=== PATIENT | male | born 1960 | race Caucasian/White ===

== ENCOUNTER 2022-12-18 09:11 | Day surgery (SDC) | payer OTHER ==
[~2022-12-18 09:11] MED LIST: Bupivacaine 0.5%/EPINEPHrine 1:200,000 50 ML MDV ONE; Lidocaine 1% 50 ML MDV ONE
[2022-12-18] MEDS ORDERED: Sodium Chloride 0.9% 1,000 ML IV SCH (10:00)
[2022-12-18] MEDS ORDERED: ceFAZolin 2 GM in Premix Bag 1 BAG IV ONE (10:45)
[2022-12-18] MEDS ORDERED: Propofol 200 MG/20 ML SDV ONE ×3 (11:04→11:55)
[2022-12-18] MEDS ORDERED: fentaNYL 100 MCG/2 ML SDV ONE ×2 (11:04→11:26)
[2022-12-18] MEDS ORDERED: Midazolam 1 MG/ML 2 ML SDV ONE (11:04)
== END 2022-12-18 13:25 | disposition home or self-care (01) ==
LOC: JP.SDS 09:11
PROVIDERS: ATTEND Surgery
DX: C83.35 Diffuse large B-cell lymphoma, lymph nodes of inguinal region and lower limb (principal); I10 Essential (primary) hypertension; E11.9 Type 2 diabetes mellitus without complications; E78.00 Pure hypercholesterolemia, unspecified; F17.200 Nicotine dependence, unspecified, uncomplicated
CPT/HCPCS: 38500; 88307; 88341; 88342; 88365; J0690; J2001; J2250; J2704; J3010; J3490; J7030

== ENCOUNTER 2023-01-09 09:25 | Emergency (ER) | payer OTHER ==
[2023-01-09 06:38] LABS: HEMATOCRIT 43.8 % (38.4-49.7); HEMOGLOBIN 15.4 g/dL (12.9-16.9); MEAN CORPUSCULAR HEMOGLOBIN 31.1 pg (31.6-35.5); MEAN CORPUSCULAR HGB CONC 35.2 g/dL (31.6-35.5); MEAN CORPUSCULAR VOLUME 88.5 fL (81.4-99.0); PLATELET COUNT,PLT 96 K/uL (130-375); RED BLOOD CELL COUNT 4.95 M/uL (4.14-5.76)
[2023-01-09 06:40] LABS: WHITE BLOOD CELL COUNT,WBC 80.3 K/uL (3.2-11.0)
[2023-01-09 06:51] LABS: ATYPICAL LYMPHOCYTES MODERATE; BAND PERCENT MAN 1 % (5-11); EOSINOPHILS ABSOLUTE MAN 2.41 K/uL (0.00-0.40); EOSINOPHILS PERCENT MAN 3 % (2-4); LYMPHOCYTES PERCENT MAN 67 % (24-44); METAMYELOCYTE ABSOLUTE MAN 4.82 K/uL; METAMYELOCYTE PERCENT MAN 6 %; MONOCYTES ABSOLUTE MAN 6.42 K/uL (0.20-0.90); MONOCYTES PERCENT MAN 8 % (2-6); NEUTROPHILS ABSOLUTE MAN 12.05 K/uL (1.0-7.6); SEG NEUTROPHILS PERCENT MAN 15 % (36-66)
[2023-01-09 06:56] LABS: A/G RATIO 0.7 (1.2-2.2); ALANINE AMINOTRANSFERASE,ALT 30 U/L (12-78); ALBUMIN 2.9 g/dL (3.4-5.0); ALKALINE PHOSPHATASE 204 U/L (46-116); ANION GAP 20.2 mmol/L (5.0-14.0); ASPARTATE AMNIOTRANSFERASE,AST 383 U/L (15-37); BILIRUBIN TOTAL 0.5 mg/dL (0.2-1.0); BLOOD UREA NITROGEN,BUN 43 mg/dL (7-18); CALCIUM 9.9 mg/dL (8.5-10.1); CARBON DIOXIDE,CO2 21 mmol/L (21-32); CHLORIDE,CL 86 mmol/L (100-108); CREATININE 3.3 mg/dL (0.8-1.3); EST CRCL DRUG DOSING (CG) 22.45 mL/min; ESTIMATED GFR 20 mL/min (>60); GLUCOSE RANDOM 77 mg/dL (74-106); SODIUM,NA 122 mmol/L (140-148)
[2023-01-09 06:57] LABS: POTASSIUM,K 5.2 mmol/L (3.6-5.2)
[2023-01-09 06:58] LABS: INR 1.3; PROTHROMBIN TIME 12.6 sec (9.2-10.6); PTT,PARTIAL THROMBOPLSTIN TIME 28.4 sec (21.8-27.3)
[~2023-01-09 09:25] MED LIST changes: +Acetaminophen 500 MG Tab PO ONE; +Bupivacaine 0.5% 50 ML MDV ONE; -Bupivacaine 0.5%/EPINEPHrine 1:200,000 50 ML MDV ONE; +Lactated Ringers 1,000 ML IV SCH; -Lidocaine 1% 50 ML MDV ONE; +Lidocaine 1% with EPINEPHrine 1:100,000 50 ML MDV ONE; +Midazolam 1 MG/ML 2 ML SDV ONE; +Propofol 200 MG/20 ML SDV ONE; +ceFAZolin 2 GM in Premix Bag 1 BAG IV ONE; +fentaNYL 100 MCG/2 ML SDV ONE
== END 2023-01-09 10:50 ==
LOC: JP.ED 09:25 → EDSTATUS 09:30 → JP.ED 10:50
DX: C85.10 Unspecified B-cell lymphoma, unspecified site (principal); I10 Essential (primary) hypertension; E78.00 Pure hypercholesterolemia, unspecified; M19.90 Unspecified osteoarthritis, unspecified site; F17.210 Nicotine dependence, cigarettes, uncomplicated; Z79.82 Long term (current) use of aspirin; Z79.899 Other long term (current) drug therapy
CPT/HCPCS: 36415; 80053; 85025; 85610; 85730; 93005; 93010; 96365; 99284; 99285; A9270; J0690; J1642; J2250; J3010; J7120; J2704; J3490

== ENCOUNTER 2023-02-07 02:36 | Emergency (ER) | payer OTHER ==
[2023-02-07] MEDS ORDERED: Lactated Ringers 1,000 ML IV ONE (03:19)
[2023-02-07] MEDS ORDERED: HYDROmorphone 1 MG/ML Syringe IVPUSH ONE (03:24)
[2023-02-07 03:43] LABS: HEMATOCRIT 21.5 % (38.4-49.7); HEMOGLOBIN 7.8 g/dL (12.9-16.9); MEAN CORPUSCULAR HEMOGLOBIN 29.9 pg (31.6-35.5); MEAN CORPUSCULAR HGB CONC 36.3 g/dL (31.6-35.5); MEAN CORPUSCULAR VOLUME 82.4 fL (81.4-99.0); PLATELET COUNT,PLT 48 K/uL (130-375); RED BLOOD CELL COUNT 2.61 M/uL (4.14-5.76)
[2023-02-07 03:46] LABS: WHITE BLOOD CELL COUNT,WBC 0.1 K/uL (3.2-11.0)
[2023-02-07 04:06] LABS: A/G RATIO 0.7 (1.2-2.2); ALANINE AMINOTRANSFERASE,ALT 16 U/L (12-78); ALBUMIN 1.9 g/dL (3.4-5.0); ALKALINE PHOSPHATASE 209 U/L (46-116); ASPARTATE AMNIOTRANSFERASE,AST 11 U/L (15-37); BILIRUBIN TOTAL 1.3 mg/dL (0.2-1.0); BLOOD UREA NITROGEN,BUN 14 mg/dL (7-18); CALCIUM 7.4 mg/dL (8.5-10.1); CARBON DIOXIDE,CO2 25 mmol/L (21-32); CHLORIDE,CL 102 mmol/L (100-108); CREATININE 0.5 mg/dL (0.8-1.3); ESTIMATED GFR 115 mL/min (>60); GLUCOSE RANDOM 132 mg/dL (74-106); LYMPHOCYTES ABSOLUTE MAN 0.08 K/uL (0.8-3.3); LYMPHOCYTES PERCENT MAN 82 % (24-44); NEUTROPHILS ABSOLUTE MAN 0.02 K/uL (1.0-7.6); POTASSIUM,K 3.4 mmol/L (3.6-5.2); PROTEIN TOTAL,TP 4.5 g/dL (6.4-8.2); SEG NEUTROPHILS PERCENT MAN 18 % (36-66); SODIUM,NA 136 mmol/L (140-148)
[2023-02-07 04:07] LABS: ANION GAP 12.4 mmol/L (5.0-14.0)
[2023-02-07] MEDS ORDERED: HYDROmorphone 0.5 MG/0.5 ML Syringe IVPUSH ONE (05:00)
[2023-02-07] MEDS ORDERED: Lactated Ringers 1,000 ML IV SCH (05:15)
[2023-02-07] MEDS ORDERED: FILGRASTIM AAFI 480 MCG/0.8 ML SUBCUT ONE (07:30)
== END 2023-02-07 07:22 | disposition home or self-care (01) ==
LOC: JP.ED 02:36
DX: E86.0 Dehydration (principal); C83.38 Diffuse large B-cell lymphoma, lymph nodes of multiple sites; E78.00 Pure hypercholesterolemia, unspecified; I10 Essential (primary) hypertension; F17.210 Nicotine dependence, cigarettes, uncomplicated; Z79.82 Long term (current) use of aspirin; Z79.899 Other long term (current) drug therapy
CPT/HCPCS: 36415; 80053; 83605; 84484; 84550; 85025; 96361; 96374; 96376; 99284; J1170; J7120

== ENCOUNTER 2023-02-08 00:40 | Emergency (ER) | payer OTHER ==
[2023-02-08] MEDS ORDERED: HYDROmorphone 1 MG/ML Syringe IVPUSH ONE ×2 (01:02→04:23)
[2023-02-08] MEDS ORDERED: Lactated Ringers 1,000 ML IV ONE (01:03)
[2023-02-08 01:16] LABS: HEMATOCRIT 19.5 % (38.4-49.7); HEMOGLOBIN 7.1 g/dL (12.9-16.9); MEAN CORPUSCULAR HGB CONC 36.4 g/dL (31.6-35.5); MEAN CORPUSCULAR VOLUME 82.3 fL (81.4-99.0); RED BLOOD CELL COUNT 2.37 M/uL (4.14-5.76)
[2023-02-08 01:19] LABS: PLATELET COUNT,PLT 29 K/uL (130-375); WHITE BLOOD CELL COUNT,WBC 0.1 K/uL (3.2-11.0)
[2023-02-08] MEDS ORDERED: Sodium Chloride 0.9% 10 ML Syringe FLUSH PRN (01:20)
[2023-02-08] MEDS ORDERED: Iopamidol 612 MG/ML 100 ML Bottle IV PRN (01:20)
[2023-02-08] MEDS ORDERED: Sodium Chloride 0.9% 50 ML IV SCH (01:30)
[2023-02-08 01:35] LABS: A/G RATIO 0.7 (1.2-2.2); ALANINE AMINOTRANSFERASE,ALT 14 U/L (12-78); ALBUMIN 1.8 g/dL (3.4-5.0); ALKALINE PHOSPHATASE 174 U/L (46-116); ASPARTATE AMNIOTRANSFERASE,AST 9 U/L (15-37); BILIRUBIN TOTAL 1.2 mg/dL (0.2-1.0); BLOOD UREA NITROGEN,BUN 12 mg/dL (7-18); CALCIUM 7.2 mg/dL (8.5-10.1); CARBON DIOXIDE,CO2 23 mmol/L (21-32); CHLORIDE,CL 101 mmol/L (100-108); CREATININE 0.5 mg/dL (0.8-1.3); EST CRCL DRUG DOSING (CG) 148.75 mL/min; ESTIMATED GFR 115 mL/min (>60); GLUCOSE RANDOM 117 mg/dL (74-106); POTASSIUM,K 3.2 mmol/L (3.6-5.2); PROTEIN TOTAL,TP 4.4 g/dL (6.4-8.2); SODIUM,NA 134 mmol/L (140-148)
[2023-02-08 01:42] LABS: ANION GAP 13.2 mmol/L (5.0-14.0)
[2023-02-08 01:46] LABS: LYMPHOCYTES ABSOLUTE MAN 0.09 K/uL (0.8-3.3); LYMPHOCYTES PERCENT MAN 90 % (24-44); NEUTROPHILS ABSOLUTE MAN 0.01 K/uL (1.0-7.6); SEG NEUTROPHILS PERCENT MAN 10 % (36-66)
[2023-02-08] MEDS ORDERED: Potassium Chloride 10 MEQ in Premix Bag 1 BAG IV ONE (04:08)
[2023-02-08 04:42] LABS: MAGNESIUM 1.4 mg/dL (1.8-2.4); PHOSPHORUS 2.7 mg/dL (2.5-4.9)
[2023-02-08] MEDS ORDERED: FILGRASTIM AAFI 480 MCG/0.8 ML SUBCUT ONE (07:00)
== END 2023-02-08 07:07 ==
LOC: JP.ED 00:40
DX: R13.19 Other dysphagia (principal); I10 Essential (primary) hypertension; E78.00 Pure hypercholesterolemia, unspecified; Z79.82 Long term (current) use of aspirin; Z79.899 Other long term (current) drug therapy
CPT/HCPCS: 36415; 71250; 74177; 80053; 83605; 83735; 84100; 84484; 85025; 96361; 96365; 96375; 96376; 99285; J1170; J3480; J3490; J7120; Q9967

== ENCOUNTER → 2023-03-23 | Day surgery (SDC) | payer OTHER ==
[~2023-03-23] MED LIST changes: -Acetaminophen 500 MG Tab PO ONE; -Bupivacaine 0.5% 50 ML MDV ONE; +HYDROmorphone 0.5 MG/0.5 ML Syringe IVPUSH ONE; +Heparin Sodium 5,000 Units/ML Vial IVPUSH PRN; -Lactated Ringers 1,000 ML IV SCH; -Lidocaine 1% with EPINEPHrine 1:100,000 50 ML MDV ONE; -Midazolam 1 MG/ML 2 ML SDV ONE; +Naloxone 0.4 MG/ML SDV IVPUSH PRN; +Pantoprazole 40 MG Vial IVPUSH ONE; +Sodium Chloride 0.9% 1,000 ML IV ONE; -ceFAZolin 2 GM in Premix Bag 1 BAG IV ONE; -fentaNYL 100 MCG/2 ML SDV ONE; +fentaNYL 50 MCG/ML SDV ONE
[2023-03-23 11:24] LABS: HEMATOCRIT 22.7 % (38.4-49.7); HEMOGLOBIN 7.7 g/dL (12.9-16.9); MEAN CORPUSCULAR HEMOGLOBIN 31.3 pg (31.6-35.5); MEAN CORPUSCULAR HGB CONC 33.9 g/dL (31.6-35.5); MEAN CORPUSCULAR VOLUME 92.3 fL (81.4-99.0); PLATELET COUNT,PLT 295 K/uL (130-375); RED BLOOD CELL COUNT 2.46 M/uL (4.14-5.76); WHITE BLOOD CELL COUNT,WBC 6.5 K/uL (3.2-11.0)
[2023-03-23 11:45] LABS: A/G RATIO 0.8 (1.2-2.2); ALBUMIN 2.4 g/dL (3.4-5.0); BILIRUBIN DIRECT 0.12 mg/dL (0.0-0.2); BILIRUBIN INDIRECT 0.18; BILIRUBIN TOTAL 0.3 mg/dL (0.2-1.0); CALCIUM 7.6 mg/dL (8.5-10.1); CREATININE 0.5 mg/dL (0.8-1.3); EST CRCL DRUG DOSING (CG) 127.76 mL/min; PROTEIN TOTAL,TP 5.5 g/dL (6.4-8.2); URIC ACID 4.3 mg/dL (3.5-7.2)
[2023-03-23 12:09] LABS: BAND ABSOLUTE MAN 0.13 K/uL; BAND PERCENT MAN 2 % (5-11); LYMPHOCYTES PERCENT MAN 3 % (24-44); MONOCYTES PERCENT MAN 20 % (2-6); NEUTROPHILS ABSOLUTE MAN 4.88 K/uL (1.0-7.6); SEG NEUTROPHILS PERCENT MAN 75 % (36-66)
== END ==
LOC: JP.ED 09:43 → JP.SDS 13:05 → JP.ED 15:15
PROVIDERS: ATTEND Surgery
DX: K21.00 Gastro-esophageal reflux disease with esophagitis, without bleeding (principal); K22.2 Esophageal obstruction; K22.10 Ulcer of esophagus without bleeding; I10 Essential (primary) hypertension; E78.00 Pure hypercholesterolemia, unspecified; F17.200 Nicotine dependence, unspecified, uncomplicated; Z79.899 Other long term (current) drug therapy
CPT/HCPCS: 36415; 43239; 43249; 80048; 80076; 84550; 85025; 88305; 88312; 88342; 96361; 96374; 96375; 99283; 99284; C9113; J1170; J1642; J2704; J3010; J7030

== ENCOUNTER 2023-04-04 15:00 | Emergency (ER) | payer OTHER ==
[2023-04-04 16:32] LABS: BASOPHILS ABSOLUTE AUTO 0.03 K/uL (0.00-0.10); BASOPHILS PERCENT AUTO 0.3 % (0.1-1.3); EOSINOPHILS ABSOLUTE AUTO 0.04 K/uL (0.00-0.40); EOSINOPHILS PERCENT AUTO 0.3 % (0.0-5.4); HEMATOCRIT 26.3 % (38.4-49.7); HEMOGLOBIN 8.7 g/dL (12.9-16.9); IMMATURE GRAN ABSOLUTE AUTO 0.28 K/uL (0.00-0.23); IMMATURE GRAN PERCENT AUTO 2.4 % (0.0-0.7); LYMPHOCYTES ABSOLUTE AUTO 0.26 K/uL (0.8-3.3); LYMPHOCYTES PERCENT AUTO 2.3 % (11.4-47.7); MEAN CORPUSCULAR HEMOGLOBIN 31.5 pg (31.6-35.5); MEAN CORPUSCULAR HGB CONC 33.1 g/dL (31.6-35.5); MEAN CORPUSCULAR VOLUME 95.3 fL (81.4-99.0); MONOCYTES ABSOLUTE AUTO 2.21 K/uL (0.20-0.90); MONOCYTES PERCENT AUTO 19.3 % (3.3-12.6); NEUTROPHILS ABSOLUTE AUTO 8.64 K/uL (1.0-7.6); NEUTROPHILS PERCENT AUTO 75.4 % (40.0-78.1); PLATELET COUNT,PLT 302 K/uL (130-375); RED BLOOD CELL COUNT 2.76 M/uL (4.14-5.76); WHITE BLOOD CELL COUNT,WBC 11.5 K/uL (3.2-11.0)
[2023-04-04] MEDS: HYDROmorphone 0.5 MG/0.5 ML Syringe IVPUSH ONE (16:55)
[2023-04-04] MEDS: Ondansetron 4 MG/2 ML SDV IVPUSH ONE (16:55)
[2023-04-04] MEDS: Sodium Chloride 0.9% 1,000 ML IV SCH (16:55)
[2023-04-04 17:24] LABS: A/G RATIO 0.8 (1.2-2.2); ALANINE AMINOTRANSFERASE,ALT 9 U/L (12-78); ALBUMIN 2.8 g/dL (3.4-5.0); ALKALINE PHOSPHATASE 95 U/L (46-116); ASPARTATE AMNIOTRANSFERASE,AST 10 U/L (15-37); BILIRUBIN TOTAL 0.5 mg/dL (0.2-1.0); BLOOD UREA NITROGEN,BUN 9 mg/dL (7-18); CALCIUM 9.2 mg/dL (8.5-10.1); CARBON DIOXIDE,CO2 27 mmol/L (21-32); CHLORIDE,CL 92 mmol/L (100-108); CREATININE 0.5 mg/dL (0.8-1.3); EST CRCL DRUG DOSING (CG) 127.76 mL/min; ESTIMATED GFR 115 mL/min (>60); GLUCOSE RANDOM 81 mg/dL (74-106); POTASSIUM,K 3.1 mmol/L (3.6-5.2); PROTEIN TOTAL,TP 6.2 g/dL (6.4-8.2); SODIUM,NA 131 mmol/L (140-148)
[2023-04-04 17:25] LABS: ANION GAP 15.1 mmol/L (5.0-14.0)
[2023-04-04] MEDS: Sodium Chloride 0.9% 10 ML Syringe FLUSH PRN (19:12)
[2023-04-04] MEDS: Iopamidol 612 MG/ML 100 ML Bottle IV PRN (19:13)
[2023-04-04] MEDS: Sodium Chloride 0.9% 80 ML IV SCH (19:13)
[2023-04-04] MEDS: HYDROmorphone 1 MG/ML Syringe IVPUSH ONE (19:34)
[2023-04-04] MEDS: Enoxaparin 60 MG/0.6 ML Syringe SUBCUT ONE (22:45)
== END 2023-04-04 23:04 ==
LOC: JP.ED 15:00
DX: R13.19 Other dysphagia (principal); I26.99 Other pulmonary embolism without acute cor pulmonale; K22.89 Other specified disease of esophagus; I11.0 Hypertensive heart disease with heart failure; I50.9 Heart failure, unspecified; E78.00 Pure hypercholesterolemia, unspecified; Z79.899 Other long term (current) drug therapy; Z79.01 Long term (current) use of anticoagulants; F17.210 Nicotine dependence, cigarettes, uncomplicated
CPT/HCPCS: 36415; 71260; 74177; 80053; 83735; 85025; 96361; 96372; 96374; 96375; 96376; 99285; J1170; J1650; J2405; J3490; J7030; Q9967

== ENCOUNTER 2023-05-02 22:03 | Emergency (ER) | payer OTHER ==
[2023-05-02] MEDS: Ondansetron 4 MG Tab.DIS PO ONE (23:08)
[2023-05-02 23:10] LABS: BASOPHILS PERCENT AUTO 0.3 % (0.1-1.3); EOSINOPHILS ABSOLUTE AUTO 0.03 K/uL (0.00-0.40); EOSINOPHILS PERCENT AUTO 0.4 % (0.0-5.4); HEMATOCRIT 22.7 % (38.4-49.7); HEMOGLOBIN 7.8 g/dL (12.9-16.9); IMMATURE GRAN ABSOLUTE AUTO 0.06 K/uL (0.00-0.23); IMMATURE GRAN PERCENT AUTO 0.8 % (0.0-0.7); LYMPHOCYTES ABSOLUTE AUTO 0.09 K/uL (0.8-3.3); LYMPHOCYTES PERCENT AUTO 1.2 % (11.4-47.7); MEAN CORPUSCULAR HEMOGLOBIN 32.1 pg (31.6-35.5); MEAN CORPUSCULAR HGB CONC 34.4 g/dL (31.6-35.5); MEAN CORPUSCULAR VOLUME 93.4 fL (81.4-99.0); MONOCYTES ABSOLUTE AUTO 0.51 K/uL (0.20-0.90); MONOCYTES PERCENT AUTO 6.8 % (3.3-12.6); NEUTROPHILS ABSOLUTE AUTO 6.81 K/uL (1.0-7.6); NEUTROPHILS PERCENT AUTO 90.5 % (40.0-78.1); PLATELET COUNT,PLT 130 K/uL (130-375); RED BLOOD CELL COUNT 2.43 M/uL (4.14-5.76); WHITE BLOOD CELL COUNT,WBC 7.5 K/uL (3.2-11.0)
[2023-05-02 23:11] LABS: BASOPHILS ABSOLUTE AUTO 0.02 K/uL (0.00-0.10)
[2023-05-02 23:23] LABS: C-REACTIVE PROTEIN 8.52 mg/dL (<0.50); CREATININE 0.5 mg/dL (0.8-1.3); EST CRCL DRUG DOSING (CG) 117.93 mL/min; POTASSIUM,K 4.4 mmol/L (3.6-5.2)
[2023-05-02 23:24] LABS: ANION GAP 10.4 mmol/L (5.0-14.0)
[2023-05-02] MEDS ORDERED: Naloxone 0.4 MG/ML SDV IVPUSH PRN (23:37)
[2023-05-02] MEDS: HYDROmorphone 0.5 MG/0.5 ML Syringe IVPUSH ONE (23:46)
[2023-05-03] MEDS: Sodium Chloride 0.9% 1,000 ML IV SCH (00:12)
[2023-05-03 00:57] LABS: INFLUENZA A NAA NEGATIVE (NEGATIVE); INFLUENZA B NAA NEGATIVE (NEGATIVE); RESPIRATORY SYNCYTIAL VIR NAA NEGATIVE (NEGATIVE)
[2023-05-03 00:59] LABS: CORONAVIRUS COVID-19 NAA POSITIVE (NEGATIVE)
== END 2023-05-03 03:20 | disposition home or self-care (01) ==
LOC: JP.ED 22:03
DX: U07.1 COVID-19 (principal); I11.0 Hypertensive heart disease with heart failure; I50.9 Heart failure, unspecified; E78.00 Pure hypercholesterolemia, unspecified; F17.210 Nicotine dependence, cigarettes, uncomplicated; Z79.899 Other long term (current) drug therapy
CPT/HCPCS: 0241U; 36415; 74176; 80048; 83605; 85025; 86140; 93010; 96361; 96374; 99284; 99285; J1170; J7030; Q0162

== ENCOUNTER 2023-05-23 09:45 | Emergency (ER) | payer OTHER ==
[2023-05-23] MEDS: Sodium Chloride 0.9% 1,000 ML IV ONE ×3 (11:19→14:29)
[2023-05-23 11:22] LABS: BASOPHILS PERCENT AUTO 0.2 % (0.1-1.3); HEMATOCRIT 22.6 % (38.4-49.7); HEMOGLOBIN 7.6 g/dL (12.9-16.9); IMMATURE GRAN ABSOLUTE AUTO 0.16 K/uL (0.00-0.23); IMMATURE GRAN PERCENT AUTO 1.4 % (0.0-0.7); LYMPHOCYTES ABSOLUTE AUTO 0.09 K/uL (0.8-3.3); LYMPHOCYTES PERCENT AUTO 0.8 % (11.4-47.7); MEAN CORPUSCULAR HEMOGLOBIN 32.5 pg (31.6-35.5); MEAN CORPUSCULAR HGB CONC 33.6 g/dL (31.6-35.5); MEAN CORPUSCULAR VOLUME 96.6 fL (81.4-99.0); MONOCYTES ABSOLUTE AUTO 0.88 K/uL (0.20-0.90); MONOCYTES PERCENT AUTO 7.5 % (3.3-12.6); NEUTROPHILS ABSOLUTE AUTO 10.55 K/uL (1.0-7.6); NEUTROPHILS PERCENT AUTO 90.1 % (40.0-78.1); PLATELET COUNT,PLT 146 K/uL (130-375); RED BLOOD CELL COUNT 2.34 M/uL (4.14-5.76); WHITE BLOOD CELL COUNT,WBC 11.7 K/uL (3.2-11.0)
[2023-05-23 11:30] LABS: BASOPHILS ABSOLUTE AUTO 0.02 K/uL (0.00-0.10)
[2023-05-23 11:41] LABS: A/G RATIO 0.7 (1.2-2.2); ALANINE AMINOTRANSFERASE,ALT 20 U/L (12-78); ALBUMIN 2.3 g/dL (3.4-5.0); ALKALINE PHOSPHATASE 203 U/L (46-116); ASPARTATE AMNIOTRANSFERASE,AST 24 U/L (15-37); BILIRUBIN TOTAL 0.3 mg/dL (0.2-1.0); BLOOD UREA NITROGEN,BUN 37 mg/dL (7-18); CALCIUM 10.1 mg/dL (8.5-10.1); CARBON DIOXIDE,CO2 23 mmol/L (21-32); CHLORIDE,CL 91 mmol/L (100-108); CREATININE 2.4 mg/dL (0.8-1.3); EST CRCL DRUG DOSING (CG) 22.52 mL/min; ESTIMATED GFR 30 mL/min (>60); GLUCOSE RANDOM 79 mg/dL (74-106); PROTEIN TOTAL,TP 5.6 g/dL (6.4-8.2)
[2023-05-23 11:42] LABS: ANION GAP 11.8 mmol/L (5.0-14.0); POTASSIUM,K 6.8 mmol/L (3.6-5.2); SODIUM,NA 119 mmol/L (140-148)
[2023-05-23 11:45] LABS: LACTIC ACID 1.1 mmol/L (0.4-2.0)
[2023-05-23] MEDS: Morphine 10 MG/ML Syringe IVPUSH ONE (11:51)
[2023-05-23 13:53] LABS: A/G RATIO 0.7 (1.2-2.2); ALANINE AMINOTRANSFERASE,ALT 17 U/L (12-78); ALKALINE PHOSPHATASE 186 U/L (46-116); ASPARTATE AMNIOTRANSFERASE,AST 22 U/L (15-37); BILIRUBIN TOTAL 0.3 mg/dL (0.2-1.0); BLOOD UREA NITROGEN,BUN 36 mg/dL (7-18); CALCIUM 9.1 mg/dL (8.5-10.1); CARBON DIOXIDE,CO2 21 mmol/L (21-32); CHLORIDE,CL 94 mmol/L (100-108); CREATININE 2.3 mg/dL (0.8-1.3); ESTIMATED GFR 31 mL/min (>60); GLUCOSE RANDOM 76 mg/dL (74-106); PROTEIN TOTAL,TP 4.9 g/dL (6.4-8.2); SODIUM,NA 122 mmol/L (140-148)
[2023-05-23 13:56] LABS: ANION GAP 13.3 mmol/L (5.0-14.0); POTASSIUM,K 6.3 mmol/L (3.6-5.2)
[2023-05-23 16:01] LABS: CREATININE 2.3 mg/dL (0.8-1.3); EST CRCL DRUG DOSING (CG) 23.5 mL/min
[2023-05-23 16:03] LABS: ANION GAP 13.1 mmol/L (5.0-14.0); POTASSIUM,K 6.1 mmol/L (3.6-5.2)
== END 2023-05-23 16:40 | disposition home or self-care (01) ==
LOC: JP.ED 09:45
DX: E87.6 Hypokalemia (principal); E87.1 Hypo-osmolality and hyponatremia; C83.38 Diffuse large B-cell lymphoma, lymph nodes of multiple sites; F17.210 Nicotine dependence, cigarettes, uncomplicated; I11.0 Hypertensive heart disease with heart failure; I50.9 Heart failure, unspecified; E78.00 Pure hypercholesterolemia, unspecified; Z79.01 Long term (current) use of anticoagulants; Z79.899 Other long term (current) drug therapy
CPT/HCPCS: 36415; 80048; 80053; 83605; 85025; 93005; 93010; 96361; 96374; 99284; 99285; J1642; J2270; J7030

== ENCOUNTER 2023-05-24 12:26 | Emergency (ER) | payer OTHER ==
[2023-05-24] MEDS: Lidocaine 2% Jelly 10 ML Urojet MUCMEM ONE (14:58)
[2023-05-24 15:31] LABS: INR 1.3; PROTHROMBIN TIME 12.6 sec (9.2-10.6)
[2023-05-24 15:35] LABS: A/G RATIO 0.7 (1.2-2.2); ALANINE AMINOTRANSFERASE,ALT 18 U/L (12-78); ALKALINE PHOSPHATASE 226 U/L (46-116); ASPARTATE AMNIOTRANSFERASE,AST 29 U/L (15-37); BILIRUBIN TOTAL 0.3 mg/dL (0.2-1.0); BLOOD UREA NITROGEN,BUN 43 mg/dL (7-18); CALCIUM 9.7 mg/dL (8.5-10.1); CARBON DIOXIDE,CO2 20 mmol/L (21-32); CHLORIDE,CL 92 mmol/L (100-108); CREATININE 3.3 mg/dL (0.8-1.3); EST CRCL DRUG DOSING (CG) 16.38 mL/min; ESTIMATED GFR 20 mL/min (>60); GLUCOSE RANDOM 61 mg/dL (74-106)
[2023-05-24 15:42] LABS: ANION GAP 12.7 mmol/L (5.0-14.0); POTASSIUM,K 6.7 mmol/L (3.6-5.2); SODIUM,NA 118 mmol/L (140-148)
[2023-05-24] MEDS: Sodium Chloride 0.9% 1,000 ML IV ONE ×2 (16:32)
[2023-05-24] MEDS: Furosemide 40 MG/4 ML VIAL IVPUSH ONE (16:58)
[2023-05-24] MEDS: Morphine 10 MG/ML Syringe IVPUSH ONE (16:58)
[2023-05-24] MEDS ORDERED: 50% Dextrose in Water 50 ML Syringe IVPUSH PRN (17:24)
[2023-05-24] MEDS ORDERED: Glucagon,Human Recombinant 1 MG Vial IM PRN (17:24)
[2023-05-24] MEDS: 50% Dextrose in Water 50 ML Syringe IVPUSH ONE (18:19)
[2023-05-24] MEDS: Insulin Regular, Human 100 Units/ML 3 ML Vial IVPUSH ONE (19:27)
== END 2023-05-24 20:24 ==
LOC: JP.ED 12:26
DX: E87.5 Hyperkalemia (principal); E87.6 Hypokalemia; N17.9 Acute kidney failure, unspecified; C83.30 Diffuse large B-cell lymphoma, unspecified site; E78.00 Pure hypercholesterolemia, unspecified; I11.0 Hypertensive heart disease with heart failure; I50.9 Heart failure, unspecified; Z79.899 Other long term (current) drug therapy
CPT/HCPCS: 36415; 51702; 80053; 82947; 85610; 93005; 96374; 96375; 99285; J1815; J1940; J2270; 93010